=== PATIENT | female | born 1965 | race Caucasian/White ===

== ENCOUNTER 2020-11-08 12:23 | Outpatient (CLI) | payer MEDICARE, OTHER, SELFPAY ==
--- NOTE | ~2020-11-08 | XR_ITS ---
XR toe 5th LT min 2V DATE: 11/08/2020 12:48 INDICATION: Stubbed fifth toe. Pain. TECHNIQUE: 4 views COMPARISON: None FINDINGS: No fracture or dislocation, periosteal reaction or bone destruction. IMPRESSION: Negative Reviewed, dictated and finalized at location A. SALES CONSULTANT IMPRESSION: Negative
--- NOTE | ~2020-11-08 | XR_ITS ---
XR ankle LT min 3V DATE: 11/08/2020 12:48 INDICATION: Fall. Lateral ankle pain. TECHNIQUE: 4 views COMPARISON: None FINDINGS: No fracture or dislocation of the ankle mortise or disruption of the ankle mortise. Plantar calcaneal enthesopathy. IMPRESSION: No fracture or dislocation Reviewed, dictated and finalized at location A. L MANAGER IMPRESSION: No fracture or dislocation
== END 2020-11-08 12:24 | disposition home or self-care (01) ==
LOC: ANHIMG 12:33
PROVIDERS: PCP Internal Medicine; Visit Provider Internal Medicine
DX: M79.672 Pain in left foot (principal); M77.32 Calcaneal spur, left foot
CPT/HCPCS: 73610; 73660

== ENCOUNTER 2020-12-06 08:10 | Outpatient (CLI) | payer MEDICARE, OTHER, SELFPAY ==
--- NOTE | ~2020-12-06 | MM_ITS ---
EXAMINATION: MM screening tammy BI w deepak HISTORY: Screening mammogram TECHNIQUE: Craniocaudal and mediolateral oblique 3-D tomosynthesis images were obtained and synthetic 2-D images were generated. CAD analysis was submitted and interpreted. COMPARISON: No prior mammogram is available for comparison at this institution. BREAST PARENCHYMAL COMPOSITION: The breasts are almost entirely fatty. FINDINGS: RIGHT BREAST: A mass is present in the middle third of the outer breast 5.5 cm from the nipple. No bassett spicious calcification or architectural distortion are identified. LEFT BREAST: There is no evidence of suspicious mass, calcification, or architectural distortion to s uggest malignancy. IMPRESSION: 1. Right breast mass. 2. Additional mammographic views and possible breast ultrasound are recommended. BI-RADS Category 0: Incomplete: Needs additional imaging evaluation. Reviewed, dictated and finalized at location A. TORCH SOLDERER IMPRESSION: 1. Right breast mass. 2. Additional mammographic views and possible breast ultrasound are recommended . BI-RADS Category 0: Incomplete: Needs additional imaging evaluation.
== END 2020-12-06 08:11 | disposition home or self-care (01) ==
LOC: ANHIMG 08:14
PROVIDERS: PCP Internal Medicine; Visit Provider Internal Medicine
DX: Z12.31 Encounter for screening mammogram for malignant neoplasm of breast (principal); R92.8 Other abnormal and inconclusive findings on diagnostic imaging of breast
CPT/HCPCS: 77063; 77067

== ENCOUNTER 2021-01-01 11:38 | Outpatient (CLI) | payer MEDICARE, OTHER, SELFPAY ==
--- NOTE | ~2021-01-01 | MMUS_ITS ---
EXAMINATION: MM diagnostic mammo unilat RT, US breast RT limited HISTORY: Right breast mass on screening mammogram TECHNIQUE: Additional 3-D tomosynthesis images of the right breast were performed and synthetic 2-D i mages were generated. CAD analysis was submitted and interpreted. High resolution limited right breas t ultrasound was performed. COMPARISON: 12/06/2020 FINDINGS: MAMMOGRAPHIC FINDINGS: There is a 6 mm oval, circumscribed, equal density mass in the middle third of the upper outer quadra nt of the breast at the 10:00 location 5 cm from the nipple. No suspicious architectural distortion o r calcification are identified. ULTRASOUND: There is a 5 mm x 2 mm cyst at the 10:00 location 4 cm from the nipple corresponding to the mammograp hic finding in question. No suspicious cystic or solid mass is identified. IMPRESSION: 1. No mammographic or sonographic evidence of malignancy. 2. Recommend routine screening mammography in one year. BI-RADS Category 2: Benign finding(s). Reviewed, dictated and finalized at location A. TEXTURING MACHINE OPERATOR IMPRESSION: 1. No mammographic or sonographic evidence of malignancy. 2. Recommend routine screening mammography in one year. BI-RADS Category 2: Benign finding(s).
== END 2021-01-01 11:39 | disposition home or self-care (01) ==
LOC: ANHIMG 11:39
PROVIDERS: PCP Internal Medicine; Visit Provider Internal Medicine
DX: R92.8 Other abnormal and inconclusive findings on diagnostic imaging of breast (principal)
CPT/HCPCS: 76642; 77065

== ENCOUNTER 2025-05-04 22:01 | Emergency (ER) | payer MEDICARE, OTHER, SELFPAY ==
[2025-05-04 22:07] VITALS: BP 168/87; PULSE 60; RESP 18; TEMP 36.8; O2SAT 98
--- OUTSIDE RECORDS SUMMARY | 2025-05-04 22:21 | XMS_ITS | Clinical Summary ---
Author Organization [facility] Address [address], [address] [address] Phone Care Team Providers Care Fisher Line Name Role Phone Danish Borja MD Primary Care Provider [phone] Aileen Arellano MD Unavailable Allergies No known active allergies Medications ARIPiprazole (ABILIFY) 5 MG Tablet Take 5 mg by mouth daily. 3 Active aspirin EC 81 MG Tablet Delayed Response Take 81 mg by mouth. 3 Active atorvastatin (LIPITOR) 40 MG Tablet 3 Active buPROPion SR (WELLBUTRIN SR) 150 MG TABLET SR 12 HR Take 150 mg by mouth 2 times daily. 3 Active cyclobenzaprin e (FLEXERIL) 5 MG Tablet TAKE 1 TABLET BY MOUTH THREE TIMES DAILY NEEDED 3 Active DULoxetine (CYMBALTA) [address] Particles TAKE 2 CAPSULE BY MOUTH DAILY 3 Active ferrous sulfate 325 (65 Fe) MG Tablet Take 325 mg by mouth. Active Jardiance 10 MG Tablet 3 Active gabapentin (NEURONTIN) 300 MG Capsule Take 600 mg by mouth. 7 Active insulin glargine (LANTUS) 100 UNIT/ML Solution by Subcutaneous route. 3 Active lamoTRIgine (LaMICtal) 25 MG Tablet 3 Active Donepezil HCl 23 MG Tablet 3 Active metFORMIN (GLUCOPHAGE) 1000 MG Tablet Take 1,000 mg by mouth 2 times daily. 3 Active oxybutynin (DITROPAN) 5 MG Tablet Take 5 mg by mouth 2 times daily. 3 Active Glucose Blood (OneTouch Ultra) Strip CHECK BLOOD SUGAR THREE TIMES DAILY 2 Active OneTouch Ultra Strip CHECK BLOOD SUGAR THREE TIMES DAILY 3 Active omeprazole (PriLOSEC) 40 MG CAPSULE DELAYED RELEASE Take 40 mg by mouth. 8 Active loperamide (IMODIUM) 2 MG Capsule Take 2 mg by mouth if needed. 8 Active hydrocortisone 2.5 % Cream 3 Active fluticasone (FLONASE) 50 MCG/ACT Suspension 2 Sprays by Nasal route if needed. 1 Active Cyanocobalamin (VITMAIN B-12) 250 MCG Tablet Take 250 mcg by mouth. Active Cholecalcifero l 2000 UNIT Capsule Take by mouth. Activ e Ascorbic Acid 250 MG Chewable Tablet Take 1,000 mg by mouth. Active terbinafine (LamISIL) 250 MG Tablet TAKE 2 TABLETS BY MOUTH DAILY FOR THE FIRST WEEK OF EVERY MONTH 3 Active metoprolol Succinate (TOPROL-XL) 25 MG TABLET SR 24 HR 4 Active lisinopril (PRINIVIL, ZESTRIL) 20 MG Tablet 4 Active hydrOXYzine (ATARAX) 25 MG Tablet TAKE 1 TABLET BY MOUTH DAILY NEEDED 4 Active MAGNESIUM PO Take 500 mg by mouth. Every other day Active psyllium (Metamucil 3 in 1 Daily Fiber) 400 MG Capsule Take by mouth. Activ e Psyllium 33 % Powder Take 1 Packet by mouth. 025 Discontin ued(Med List Clean Up) Potassium Chloride ER (KLORCON) 20 MEQ Tablet Controlled Release Take 20 mEq by mouth every other day. 4 025 Discontin ued(Med List Clean Up) Active Problems Problem Noted Date Diagnosed Date HTN (hypertension) 08/17/2023 HLD (hyperlipidemia) 08/17/2023 Dementia 08/17/2023 Diabetes 08/17/2023 CVA (cerebral vascular accident) 08/17/2023 Diabetic neuropathy 11/07/2021 12/15/2023 Overview (12/15/2023): Last Assessment & Plan: Checking hemoglobin A1c. No change in medication with Lamictal recently being increased probably more from mood but may also help neuropathy. Consider a trial of reducing gabapentin given she is on multiple neuro active medications. I do not see any adverse effects however from any of them today Last Assessment & Plan: Checking hemoglobin A1c. No change in medication with Lamictal recently being increased probably more from mood but may also help neuropathy. Consider a trial of reducing gabapentin given she is on multiple neuro active medications. I do not see any adverse effects however from any of them today Personality disorder 05/28/2017 12/15/2023 Encounters Date Type Department Care Team Description 04/12/2025 11:00 AM CDT Office Visit [facility] [address] [phone] Mell Pichardo, LEAD LAYING AND GLUING MACHINE OPERATOR, PRIVATE INVESTIGATOR SURVEILLANCE Iron deficiency (Primary Dx); Thrombocytosis; Leukocytosis, unspecified type 04/12/2025 Travel 04/06/2025 11:20 AM CDT Lab [facility] [address] [address] Lab, [facility] Iron deficiency; Thrombocytosis; Leukocytosis, unspecified type 04/06/2025 Travel from Last 3 Months Immunizations Immunization Administration Dates Next Due Covid-19, Mrna, Lnp-s, Pf, 3 0 Mcg/0.3 Ml Dose (Pfizer) 03/26/2021,03/10/2021,03/05/2021 Influenza Vaccine, Quadrivalent, PF 10/01,10/06/2022,11/05/2021,2019,10/05/2019,09/27/2018 Influenza Vaccine,unspecifie d Formulation 08/31/2017,12/05/2013 MMR Vaccine 03/10/2012 Pneumococcal Vaccine Adult - 23 Valent 04/17/2022 TDAP Vaccine 09/27/2018,02/17/2017,02/10/2012 Td Vaccine (preservative free) 11/30/2007 Zoster Vaccine Recombinant 05/14/2019,05/05/2018 Family History Relation Name Status Comments Brother Father Mother Son Alive Social History Tobacco Use Types Packs/Day Years Used Date Smoking Tobacco: Former Cigarettes Q uit: 2020 Smokeless Tobacco: Never Tobacco Cessation:Counseling Given: Not Answered Alcohol Use Standard Drinks/Week Comments Yes 0 (1 standard drink = 0.6 oz pur e alcohol) occassionally Comments Unknown Sex and Gender Information Value Date Recorded Sex Assigned at Female 07/21/2023 1:31 PM CDT Legal Sex Female 1:29 PM CDT Gender Identity Female 07/21/2023 1:31 PM CDT Sexual Orientation Straight 02/08/2024 11 :24 AM CDT Last Filed Vital Signs Vital Sign Reading Time Taken Comments Blood Pressure 108/64 04/12/2025 10:39 AM CDT Pulse 51 04/12/2025 10:39 AM CDT Temperature 36.6 C (97.8 F) 04/12/2025 10:39 AM CDT Respiratory Rate 18 04/12/2025 10:39 AM CDT Oxygen Saturation 98% 04/12/2025 10:39 AM CDT Inhaled Oxygen Concentration - - Weight 82.7 kg (182 lb 4.8 oz) 04/12/2025 10:39 AM CDT Height 175.3 cm (5' 9) 04/12/2025 10:39 AM CDT Body Mass Index 26.92 04/12/2025 10:39 AM CDT Plan of Treatment Upcoming Encounters Date Type Department Care Team (Late st Contact Info) Description 08/09/2025 12:00 PM CDT Lab [facility] [address] [phone] Lab, Cc [facility] 08/16/2025 11:00 AM CDT Office Visit [facility] [address] [phone] Aileen Arellano MD [address] [place] [address] Health Maintenance Due Date Last Done Comments Diabetes: Eye Exam 1966 Diabetes: Foot Exam 1966 Hepatitis C Virus (HCV) Screening 1966 Hepatitis B Immunization (1 of 3 - 19+ 3-dose series) 1985 Pap Smear 1987 Cervical Cancer Screening (CCS) 1996 HPV/Cotest 1996 Cologuard 2016 Immunochemical Fecal Occult Blood 2016 Pneumococcal Immunization (50+ years) (2 of 2 - PCV) 04/17/2023 04/17/2022 Diabetes: Nephropathy Screening 05/03/2025 05/03/2024, 08/17/2023 Diabetes: Hemoglobin A1c 09/08/2025 025, 07/12/2024, 04/07/2024, Additional history exists Mammogram 01/04/2026 01/04/2025, 1202/2023, 11/02/2023, Additional history exists Colonoscopy 09/06/2028 09/06/2018 Colorectal Cancer Screening 09/06/2028 Td Immunization Every 10 Years (Adults With 1 Tdap) 09/27/2028 09/27/2018, 02/17/2017, 02/10/2012, Additional history exists Respiratory Syncytial Virus (RSV) Immunization (Adult) (1 - 1-dose 75+ series) 2041 09/06/2018 DTaP/Tdap/Td Immunization Discontinued 2017, 02/17/2017, 02/10/2012, Additional history exists Zoster Immunization Completed 05/14/2019, 8 Pneumococcal Immunization Combined Discontinued 04/17/2022 Influenza Immunization Completed , 10/26/2023, 10/06/2022, Additional history exists SARS-COV-2 Immunization Completed 11/18/20, 09/16/2022, 04/01/2022, Additional history exists Human Papillomavirus (HPV) Immunization Aged Out No longer eligible based on patient's age to complete this topic Meningococcal Immunization (ACWY) Aged Out No longer eligible based on patient's age to complete this topic Rotavirus Immunization Aged Out No lo nger eligible based on patient's age to complete this topic Procedures Procedure Name Priority Date/Time Associated Diagnosis Comments CBC WITH AUTO DIFF OH Routine 04/06/2025 11:17 AM CDT VITAMIN B12 Routine 04/06/2025 11:17 AM CDT Iron deficiency Thrombocytosis Leukocytosis, unspecified type IRON W/ IRON BINDING CAPACITY OH Routine 04/06/2025 11:17 AM CDT Iron deficiency Thrombocytosis Leukocytosis, unspecified type FERRITIN Routine 04/06/2025 11:17 AM CDT Iron deficiency Thrombocytosis Leukocytosis, unspecified type FOLIC ACID (FOLATE) Routine 04/06/2025 1 1:17 AM CDT Iron deficiency Thrombocytosis Leukocytosis, unspecified type CMP (COMPREHENSIVE METABOLIC PANEL) Routine 05/03/2024 10:43 AM CDT Iron deficiency Thrombocytosis from Last 3 Months or Most Recently Relevant to Health Maintenance Results * IRON W/ IRON BINDING CAPACITY OH (04/06/2025 11:17 AM CDT) IRON 64 50 - 212 ug/dL CANCER TRAVELIFT OPERATOR [facility] UIBC 214 155 - 355 ug/dL CANCER TRAVELIFT OPERATOR [facility] TIBC 278 261 - 478 ug/dl CANCER TRAVELIFT OPERATOR [facility] % Saturation 23 20 - 50 % CANCER TRAVELIFT OPERATOR [facility] 04/06/2025 11:1 7 AM CDT Narrative CANCER TRAVELIFT OPERATOR [facility] - 04/06/2025 12:55 PM CDT Release to patient->Immediate us Veda Powell APRN, PRIVATE INVESTIGATOR SURVEILLANCE LAB SEND OUTS Final Result CANCER TRAVELIFT OPERATOR [facility] [place] [address], * (ABNORMAL) CBC WITH AUTO DIFF [place] (04/06/2025 11:17 AM CDT) WBC 8.9 4.0 - 10.0 10*3/uL CANCER TRAVELIFT OPERATOR [facility] HGB 12.2 11.2 - 15.7 g/dL CANCER TRAVELIFT OPERATOR [facility] HCT 38.1 34.1 - 44.9 % CANCER TRAVELIFT OPERATOR [facility] PLT 353 163 - 369 10*3/uL [facility]CER TRAVELIFT OPERATOR [facility] MPV 8.8(L) 9.4 - 12.4 fL CANCER TRAVELIFT OPERATOR [facility] RBC 3.93 3.93 - 5.22 10*6/uL CANCER TRAVELIFT OPERATOR [facility] MCV 97(H) 79 - 95 fL CANCER TRAVELIFT OPERATOR [facility] MCH 31.0 25.6 - 32.2 pg [facility]CER TRAVELIFT OPERATOR [facility] MCHC 32.0(L) 32.2 - 36.5 g/dL CANCER TRAVELIFT OPERATOR [facility] RDW 12.3 11.6 - 14.4 % [facility]CER TRAVELIFT OPERATOR [facility] Neutrophils % 64.8 36.0 - 66.0 % CANCER TRAVELIFT OPERATOR [facility] Lymphocytes % 28.0 19.0 - 40.0 % [facility] TRAVELIFT OPERATOR [facility] Monocytes % 4.4 4.1 - 12.1 % [facility]CER TRAVELIFT OPERATOR [facility] Eosinophils % 1.5 0.0 - 3.5 % [facility]ER TRAVELIFT OPERATOR [facility] Basophils % 0.7 0.0 - 1.0 % [facility] TRAVELIFT OPERATOR [facility] Absolute Neutrophils 5.8 1.4 - 6.6 10*3/uL [facility] TRAVELIFT OPERATOR [facility] Absolute Lymphocytes 2.5 0.8 - 4.0 10*3/uL [facility] TRAVELIFT OPERATOR [facility] Absolute Monocytes 0.4 0.2 - 1.2 10*3/uL [facility] TRAVELIFT OPERATOR [facility] Absolute Eosinophils 0.1 0.0 - 0.4 10*3/uL [facility] TRAVELIFT OPERATOR [facility] Absolute Basophils 0.1 0.0 - 0.1 10*3/uL [facility] 04/06/2025 11:1 7 AM CDT us Veda Powell LEAD LAYING AND GLUING MACHINE OPERATOR, PRIVATE INVESTIGATOR SURVEILLANCE LAB SEND OUTS Final Result CANCER TRAVELIFT OPERATOR [facility] [address] [place] [address], * VITAMIN B12 (04/06/2025 11:17 AM CDT) Vitamin B12 619 180 - 914 pg/mL CANCER TRAVELIFT OPERATOR [facility] Blood 04/06/2025 11:1 7 AM CDT Narrative CANCER TRAVELIFT OPERATOR [facility] - 04/07/2025 2:19 PM CDT Release to patient->Immediate Veda Powell APRN, PRIVATE INVESTIGATOR SURVEILLANCE CHEMISTRY ORDERABLES Final Result Performing Organization Address City/[facility]/ZIP Co de Phone Number CANCER TRAVELIFT OPERATOR [facility] [address] [place] [address], * FOLIC ACID (FOLATE) (04/06/2025 11:17 AM CDT) Folate 11.87 >=5.90 ng/mL [facility]CER TRAVELIFT OPERATOR [facility] Blood 04/06/2025 11:1 7 AM CDT [facility] - 04/07/2025 2:19 PM CDT Release to patient->Immediate IS THE PATIENT REQUIRED TO BE FASTING FOR 12 HOURS?->No Veda Powell APRN, PRIVATE INVESTIGATOR SURVEILLANCE CHEMISTRY ORDERABLES Final Result Performing Organization Address City/[facility]/ZIP Co de Phone Number [facility] [address] [place] [address], [place] [phone] * FERRITIN (04/06/2025 11:17 AM CDT) Ferritin 69 11 - 307 ng/mL [facility] TRAVELIFT OPERATOR [facility] Blood 04/06/2025 11:1 7 AM CDT Narrative [facility] - 04/07/2025 2:19 PM CDT Release to patient->Immediate Veda Powell LEAD LAYING AND GLUING MACHINE OPERATOR, PRIVATE INVESTIGATOR SURVEILLANCE CHEMISTRY ORDERABLES Final Result [facility] TRAVELIFT OPERATOR [facility] [place] [address], * (ABNORMAL) CMP (COMPREHENSIVE METABOLIC PANEL) (05/03/2024 10:43 AM CDT) Glucose 186(H) 70 - 105 mg/dL [facility] Blood Urea Nitrogen 12 7 - 25 mg/dL [facility] Creatinine 1.1 0.6 - 1.2 mg/dL [facility] Sodium 135(L) 136 - 145 mEq/L [facility] Potassium 4.7 3.5 - 5.1 mEq/L [facility] Chloride 101 98 - 107 mEq/L [facility] Bicarbonate 28 21 - 31 mEq/L [facility] Total Bilirubin 0.3 0.3 - 1.0 mg/dL [facility] Alk. Phosphatase 79 34 - 104 U/L [facility] Aspartate Aminotransferase 8(L) 13 - 39 U/L [facility] Alanine Aminotransferase 9 7 - 52 U/L [facility] Total Protein 5.6(L) 6.4 - 8.9 g/dL [facility] Albumin 3.7 3.5 - 5.7 g/dL [facility] Calcium 9.8 8.6 - 10.3 mg/dL [facility] Anion Gap 10.7 7.0 - 15.0 mEq/L [facility] Globulin 1.9(L) 2.0 - 3.5 g/dL [facility] EGFR 58(L) >60 ml/min/1. 73m2 [facility] TRAVELIFT OPERATOR [facility] Comment: This eGFR is calculated using 2020 CKD-EPI Creatinine equation without race modifier based on the NKF-ASN task force recommendations Blood 05/03/2024 10:4 3 AM CDT Narrative [facility] TRAVELIFT OPERATOR [facility] - 05/03/2024 11:36 AM CDT Release to patient->Immediate IS THE PATIENT REQUIRED TO BE FASTING FOR 8 HOURS?->No us Mell Pichardo APRN, PRIVATE INVESTIGATOR SURVEILLANCE CHEMISTRY ORDERABLES Final Result [facility] TRAVELIFT OPERATOR [facility] [place] [address], [place] [phone] from Last 3 Months or Most Recently Relevant to Health Maintenance Insurance MEDICARE [employer] MEDICARE SUP Advance Directives Documents on File Type Date Recorded Patient Justice Court Judge Expl anation Power of Medical Case Manager for Health Care 08/17/2023 10:59 AM POA DOC Power of Medical Case Manager for Health Care 07/21/2023 1:36 PM Care Teams Fisher Line Relationship Specialty Start Date End Date Danish Borja MD [address] [place] [id number] PCP - General Family Medicine 07/21/23 Aileen Arellano MD [address] [place] [address] Consulting Physician Oncology 12/13/24
--- OUTSIDE RECORDS SUMMARY | 2025-05-04 22:21 | XMS_ITS | Clinical Summary ---
Author Organization [address] Address [address] [place] [id number] Care Team Providers Care Wire Bound Box Machine Helper Name Role Phone Danish Borja MD Primary Care Provider [phone] Allergies No known active allergies Medications ketorolac (TORADOL) 10 mg tablet 7 Active loperamide (IMODIUM) 2 mg capsule Take 1 capsule (2 mg total) by mouth 4 (four) times a day as needed 8 Active fluticasone propionate (FLONASE) 50 mcg/actuation nasal sprayIndications :Dysfunction of both eustachian tubes Administer 2 sprays into each nostril daily 16 g 5 1 Active ARIPiprazole (ABILIFY) 5 mg tablet Take 1 tablet (5 mg total) by mouth daily 1 Active blood-glucose meter (Accu-Chek Nery Plus Meter) miscIndications: Type 2 diabetes mellitus without complication, without long-term current use of insulin (HCC) Check blood sugar 3 times daily 1 each 2 Active ipratropium-albu teroL (DUO-NEB) 0.5-2.5 mg/3 mL nebulizer solutionIndicati ons:Centrilobula r emphysema (HCC) Take 3 mL by nebulization every 6 (six) hours 180 mL 11 2 Active metoprolol XL (TOPROL-XL) 100 mg 24 hr tabletIndication s:Benign essential HTN Take 1 tablet (100 mg total) by mouth daily 90 tablet 3 2 Active blood glucose diagnostic (glucose blood) stripIndications :Type 2 diabetes mellitus without complication, without long-term current use of insulin ([facility]) Checks bs tid 100 each 11 2 Active buPROPion SR (WELLBUTRIN SR) 150 mg 12 hr tablet TAKE 1 TABLET(150 MG) BY MOUTH TWICE DAILY 60 tablet 3 2 Active lamoTRIgine (LaMICtal) 100 mg tablet Take 1 tablet (100 mg total) by mouth daily [address] (CYMBALTA) 60 mg capsule daily 2 Active metFORMIN (GLUCOPHAGE) 1,000 mg tabletIndication s:Type 2 diabetes mellitus without complication, without long-term current use of insulin ([facility]) Take 1 tablet (1,000 mg total) by mouth 2 (two) times a day with meals 60 tablet 5 2 Active glimepiride (AMARYL) 1 mg tabletIndication s:Type 2 diabetes mellitus without complication, without long-term current use of insulin ([facility]) Take 1 tablet (1 mg total) by mouth daily before breakfast 90 tablet 2 Active furosemide (LASIX) 40 mg tabletIndication s:Edema of both legs,Essential hypertension Take 1 tablet (40 mg total) by mouth daily 30 tablet 3 2 Active cloNIDine (CATAPRES) 0.3 mg tablet Take 1 tablet (0.3 mg total) by mouth daily 90 tablet 1 2 Active potassium chloride ER 20 mEq CR tabletIndication s:Edema of both legs Take 1 tablet (20 mEq total) by mouth daily 90 tablet 1 2 Active Additional Information Patient not taking.Reported on 03/07/2025 oxybutynin (DITROPAN) 5 mg tabletIndication s:Mixed stress and urge urinary incontinence Take 1 tablet (5 mg total) by mouth 2 (two) times a day 180 tablet 2 Active lisinopriL (PRINIVIL,ZESTRI L) 20 mg tablet Take 1 tablet (20 mg total) by mouth daily 90 tablet 1 2 Active donepeziL (ARICEPT) 10 mg tablet Take 1 tablet (10 mg total) by mouth daily 90 tablet 1 2 Active gabapentin (NEURONTIN) 300 mg capsuleIndicatio ns:Polyneuropath y Take 2 capsules (600 mg total) by mouth 3 (three) times a day 180 capsule 2 3 Active aspirin 81 mg enteric coated tablet Take 1 tablet (81 mg total) by mouth daily 3 Active cholecalciferol (VITAMIN D-3) 2000 unit capsule Take by mouth daily Active cyanocobalamin (Vitamin B-12) 250 mcg tablet Take 1 tablet (250 mcg total) by mouth daily Active cyclobenzaprine (FLEXERIL) 5 mg tablet Take 1 tablet (5 mg total) by mouth 3 (three) times a day as needed 3 Active Jardiance 10 mg tablet Take 1 tablet (10 mg total) by mouth daily 3 Active ferrous sulfate 325 mg (65 mg of elemental iron) tablet Take 1 tablet (325 mg total) by mouth daily Active insulin glargine 100 unit/mL vial for injection Inject under the skin 3 Active psyllium (METAMUCIL) 3.4 gram packet Take 1 packet by mouth 3 (three) times a day Active Active Problems Problem Noted Date Diagnosed Date Thyroid nodule 03/06/2024 Assessment & Plan (03/06/2024 6:53 PM CDT): Incidental 1.8 cm right complex thyroid nodule, low suspicious Defer FNA biopsy No compressive symptoms Check TSH Follow-up in 1 year for a repeat thyroid ultrasound, to follow-up on the nodule Cognitive impairment 10/06/2022 Assessment & Plan (10/06/2022 10:37 AM HEAD UP OPERATOR HELPER): Exact diagnosis not in chart but certainly consistent with early Alzheimer's with mild TD affects consider Lewy body component. Stay on Aricept Obstructive chronic bronchitis without exacerbat ion 02/03/2022 Assessment & Plan (10/06/2022 10:35 AM HEAD UP OPERATOR HELPER): Doing well no change in management Diabetic neuropathy 11/07/2021 Assessment & Plan (10/06/2022 10:37 AM HEAD UP OPERATOR HELPER): Checking hemoglobin A1c. No change in medication with Lamictal recently being increased probably more from mood but may also help neuropathy. Consider a trial of reducing gabapentin given she is on multiple neuro active medications. 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 08/05/2017 Polyneuropathy 07/01/2017 Pure hypercholesterolemia 07/01/2017 Assessment & Plan (10/06/2022 9:47 AM HEAD UP OPERATOR HELPER): Last lipids 05/21 are at goals except mild increase in TG - diet improvement, no change in Rx Major depressive disorder, s jessica episode, severe without psychotic features 05/28/2017 Assessment & Plan (10/06/2022 10:36 AM HEAD UP OPERATOR HELPER): No longer having psychotic features discussed with concern for early tardive dyskinesia, has been doing well since started CBD oil, it is possible does not need aripiprazole as much as initially felt by Psychiatry. Given long half life simply skip 1 day a week to go to 35 in 30 mg of aripiprazole re-evaluate Personality disorder 05/28/2017 Encounters Date Type Department Care Team Description 03/07/2025 11:15 AM CDT Office Visit [facility] [address] [id number] Joaquina Lujan MD Thyroid nodule (Primary Dx) from Last 3 Months Immunizations Immunization Administration Dates Next Due Influenza, Quadrivalent, Spl it, Intramuscular 11/02/2019 Influenza, Quadrivalent, Spl it, Preservative Free, Intramuscular 10/06/2022,11/19/2021,11/05/2021,08/27,10/05/2019,09/27/2018 Influenza, Trivalent, Preser vative Free, Intramuscular 08/31/2017 Influenza, Unspecified 08/30/2021,08/22/2020 MMR 03/10/2012 Pfizer SARS-CoV-2 Monovalent Vaccination (12+ Yrs) PURPLE 03/26/2021,03/05/2021 Pneumococcal Polysaccharide PPV23 04/17/2022 Tdap 09/27/2018,02/17/2017,02/10/2012 ZOSTER Recombinant 05/14/2019,05/05/2018 Surgical History Surgery Date Site/Laterality Comments MULTIPLE TOOTH EXTRACTIONS TUBAL LIGATION Family History Medical History Relation Name Comments No Known Problems Brother 1 ami No Known Problems Brother 2 betsy Diabetes Brother 3 lorenzo Hypertension Father breathing problems, not COPD Father No Known Problems Maternal Grandfather No Known Problems Maternal Grandmother Alzheimer's disease Mother Breast cancer Mother Colon cancer Mother Hypertension Mother brain tumor Mother No Known Problems Paternal Grandfather No Known Problems Paternal Grandmother No Known Problems Son Relation Name Status Comments Brother 1 ami Brother 2 betsy Alive Brother 3 lorenzo Father Maternal Grandfather Maternal Grandmother Mother Paternal Grandfather Paternal Grandmother Son Alive Social History Tobacco Use Types Packs/Day Years Used Date Smoking Tobacco: Former Cigarettes 1 41 0 07/18/1981 - 07/2022 Smokeless Tobacco: Never Tobacco Cessation:Counseling Given: Not Answered Comments:pt interested in Nicotine patches or gum to quit Humiliation, Afraid, Rape, and Kick questionnair e Answer Date Recorded Within the last year, have y ou been afraid of your partner or ex-partner? No 04/17/2022 Within the last year, have y ou been humiliated or emotionally abused in other ways by your partner or ex-partner? No Within the last year, have y ou been kicked, hit, slapped, or otherwise physically hurt by your partner or ex-partner? No 04/17/2022 Within the last year, have y ou been raped or forced to have any kind of sexual activity by your partner or ex-partner? No 04/17/2022 Social Connection and Isolation Panel [NHANES] A nswer Date Recorded In a typical week, how many times do you talk on the phone with family, friends, or neighbors? Never 04/17/2022 How often do you get together with friends or re latives? Never 04/17/2022 How often do you attend orthodoxy or buddhist serv ices? Never 04/17/2022 Do you belong to any clubs o r organizations such as orthodoxy groups, unions, fraternal or athletic groups, or school groups? No 04/17/2022 How often do you attend meet ings of the clubs or organizations you belong to? Never 04/17/2022 Are you , , di vorced, , never , or living with a partner? 04/17/2022 AUDIT-C Answer Date Recorded Frequency of Alcohol Consumption Not on file 10/06/2022 Q2: How many drinks containi ng alcohol do you have on a typical day when you are drinking? Patient does not drink Frequency of Binge Drinking Not on file 05/2022 Overall Financial Resource Strain (CARDIA) Answe r Date Recorded How hard is it for you to pa y for the very basics like food, housing, medical care, and heating? Not hard at all 04/17/2022 PHQ-2 Answer Date Recorded PHQ-2 Total Score (If total score is 3 or more points, staff should administer the PHQ-9) 0 03/04/2024 [facility] - Occupational Stress Questionnaire Answer Date Recorded Do you feel stress - tense, restless, nervous, or anxious, or unable to sleep at night because your mind is troubled all the time - these days? Very much 04/17/2022 Exercise Vital Sign Answer Date Recorde d On average, how many days pe r week do you engage in moderate to strenuous exercise (like a brisk walk)? 4 days 04/17/2022 On average, how many minutes do you engage in exercise at this level? 70 min 04/17/2022 Hunger Vital Sign Answer Date Recorded Within the past 12 months, y ou worried that your food would run out before you got the money to buy more. Never true 04/17/20 22 Within the past 12 months, t he food you bought just didn't last and you didn't have money to get more. Never true 04/17/2022 PRAPARE - Transportation Answer Date Re corded In the past 12 months, has l ack of transportation kept you from medical appointments or from getting medications? No 03/30 In the past 12 months, has l ack of transportation kept you from meetings, work, or from getting things needed for daily living? No 04/17/2022 Education Answer Date Recorded What is the highest level of school you have completed or the highest degree you have received? Some college, no degree 04/17/2022 Comments No Sex and Gender Information Value Date Recorded Sex Assigned at Not on file Legal Sex Female 9:10 AM HEAD UP OPERATOR HELPER Gender Identity Female 03/26/2022 9:38 AM CDT Sexual Orientation Straight 03/26/2022 9: 38 AM CDT Obstetrics History Para Term AB IAB SAB Ectopic Multiple Livin g Live Births 1 1 1 Date Outcome GA Total Labor Labor/2nd/3rd Weight Sex Type Anes PTL Samantha A1 A5 Name Clin Term Comments Last Filed Vital Signs Vital Sign Reading Time Taken Comments Blood Pressure 120/80 03/07/2025 11:10 AM CDT Pulse 66 03/04/2024 10:58 AM CDT Temperature 36.8 C (98.2 F) 11/04/2022 9:59 AM HEAD UP OPERATOR HELPER Respiratory Rate 15 03/07/2025 11:10 AM CDT Oxygen Saturation 98% 11/04/2022 9:59 AM HEAD UP OPERATOR HELPER Inhaled Oxygen Concentration - - Weight 83.5 kg (184 lb) 03/07/2025 11:10 AM CDT Height 175.3 cm (5' 9) 03/07/2025 11:10 AM CDT Body Mass Index 27.17 03/07/2025 11:10 AM CDT Plan of Treatment Health Maintenance Due Date Last Done Comments Hepatitis C Screening 1965 Foot Exam 1965 Hepatitis B Screening 1984 Lung Cancer Screening 2016 Hemoglobin A1C 04/05/2023 10/06/2022, 05/01, 07/29/2021 Pneumococcal vaccine <65 (2 of 2 - PCV) 04/17/2023 04/17/2022 Cervical Cancer Screening 06/20/2023 06/20/2022 Dilated Eye Exam 08/08/2023 08/08/2022 Albumin Creatinine Ratio, Urine 10/06/2023 , 07/29/2021 eGFR 10/06/2023 10/06/2022, 05/28/2022 Regular Well Visit/Exam 18-64 07/01/2024, 06/20/2022, 04/17/2022 Covid-19 Vaccine (2023-12 5 season) 2024 07/25/2022, 04/01/2022, 11/19/2021, Additional history exists Depression Screening 03/04/2025 03/04/2024, 04/17/2022, 04/17/2022, Additional history exists Lipid Panel 05/18/2025 05/18/2024, 05/01, 07/29/2021 Influenza Vaccine (Season Ended) 2025 10/26/2023, 10/06/2022, 09/16/2022, Additional history exists Breast Cancer Screening-Mammogram 01/04/2026 01/04/2025, 11/02/2023, 10/22/2022 Colon Cancer Screening-Colonoscopy 09/06/20282017 DTaP/Tdap/Td Vaccine (4 - Td or Tdap) 09/27/2028 09/27/2018, 02/17/2017, 02/10/2012, Additional history exists Zoster Vaccine Completed 05/14/2019, 05/05/2018 Procedures Procedure Name Priority Date/Time Associated Diagnosis Comments US THYROID Schedule Routine, Read Routine (OP Routine) 03/07/2025 12:09 PM CDT Thyroid nodule SCREENING MAMMOGRAM BILATERAL W TRAVIS Schedule Routine, Read Routine (OP Routine) 01/04/2025 10:14 AM HEAD UP OPERATOR HELPER Screening mammogram, encounter for EGFR Routine 10/06/2022 11:04 AM HEAD UP OPERATOR HELPER Diabetic polyneuropathy associated with type 2 diabetes mellitus (HCC) Type 2 diabetes mellitus without complication, without long-term current use of insulin (HCC) HEMOGLOBIN A1C Routine 10/06/2022 11:04 AM HEAD UP OPERATOR HELPER Diabetic polyneuropathy associated with type 2 diabetes mellitus (HCC) Type 2 diabetes mellitus without complication, without long-term current use of insulin (HCC) ALBUMIN CREATININE RATIO, URINE Routine 10/06/2022 11:04 AM HEAD UP OPERATOR HELPER Diabetic polyneuropathy associated with type 2 diabetes mellitus (HCC) Type 2 diabetes mellitus without complication, without long-term current use of insulin (HCC) DIABETIC EYE EXAM Routine 08/08/2022 PAP AND HIGH RISK HPV, REFLEX TO GENOTYPING Routine 06/20/2022 10:20 AM CDT Well woman exam LIPID PANEL Routine 05/28/2022 7:14 AM CDT Encounter for well woman exam with routine gynecological exam COLONOSCOPY Routine 09/06/2018 from Last 3 Months or Most Recently Relevant to Health Maintenance Results * US Thyroid - Clinic Performed (03/07/2025 12:09 PM CDT) Anatomical Region Laterality Modality Head and Neck N/A Ultrasound Narrative 03/07/2025 12:09 PM CDT THYROID ULTRASOUND DATE: 03/07/2025 INDICATION: Thyroid nodule PROCEDURE: Using physician performed real time ultrasonography limited to the thyroid gland, longitudinal and transverse images were obtained of both lobes and isthmus. COMPARISON STUDY: 08/2023 FINDINGS: The right thyroid lobe measures approx 3.24 X 1.47 X 1.97 cm. The left thyroid lobe measures approx 4.11 X 1.6 x 1.47 cm. Isthmus measures 0.28 cm With in the right lobe there is complex isoechoic thyroid nodule measuring approximately 1.65 x 0.84 x 0.81 cm, grade 2 vascularity noted, no calcifications noted IMPRESSION: Stable right thyroid nodule us Supraja Giacomo Gooden MD IMG US PROCEDURES F inal Result * Screening Mammogram Bilateral W Travis (01/04/2025 10:14 AM HEAD UP OPERATOR HELPER) Anatomical Region Laterality Modality Breast Bilateral Mammography Impressions 01/04/2025 10:21 AM HEAD UP OPERATOR HELPER BI-RADS ATLAS category (overall): 1 - Negative There is no mammographic evidence of malignancy. A 1 year screening mammogram is recommended. The patient has been or will be contacted. We recommend annual screening mammography for women at average risk of breast cancer beginning at age 40, based on guidelines of the [employer] (ACR Practice Parameter for the Performance of Screening and Diagnostic Mammography) and [employer]. For women with and elevated risk of breast cancer, please refer to the ACR Practice Parameter for specific screening recommendations. The patient will be entered into a reminder system with a target due date of 1 year for her next screening exam. Narrative 01/04/2025 10:21 AM HEAD UP OPERATOR HELPER Screening Mammogram Bilateral W Travis: 01/04/25 The study was acquired using full field digital technology and interpreted from soft copy. 2D digital mammographic views, as well as 3D digital tomosynthesis were performed in the CC and MLO projections. CLINICAL: Screening mammogram, encounter for. No relevant medical history has been documented for this patient. History of breast cancer in Mother. COMPARISONS: 11/02/2023 Screening Mammogram Bilateral W Travis 10/22/2022 Screening Mammogram Bilateral W Travis BREAST TISSUE: The breasts are almost entirely fatty. FINDINGS: There is no new suspicious finding in either breast on mammogram. us Self Screening Mammogram IMG MAMMO PROCEDURES Fi nal Result * eGFR (10/06/2022 11:04 AM HEAD UP OPERATOR HELPER) eGFR 48 mL/min/1. 73 m2 [facility] Comment: Interpretive Data Reference Interval Normal >/= 90 mL/min/1.73m2 Mildly decreased* 60 - 89 mL/min/1.73m2 Mildly to moderately decreased 45 - 59 mL/min/1.73m2 Moderately to severely decreased 30 - 44 mL/min/1.73m2 Severely decreased 15 - 29 mL/min/1.73m2 Kidney Failure < 15 mL/min/1.73m2 *Relative to young adult level Estimated glomerular filtration rate is determined by the 2020 CKD-EPI equation recommended by the National Kidney Foundation (A Unifying Approach to GFR Estimation: Recommendations of the NKF-ASK Task Force on Reassessing the Inclusion of Race in Diagnosing Kidney Disease, JASN 2020). The CKD-EPI equation should not be used for patients with unstable renal function and has not been validated in children and those over 70. Current interpretive data was last reviewed 2021. Blood 10/06/2022 11:0 4 AM HEAD UP OPERATOR HELPER 10/06/2022 12:18 PM HEAD UP OPERATOR HELPER Olvin Murray MD LAB BLOOD ORDERABLES Fin al Result [facility] [address] [facility] Department [place] [address] * (ABNORMAL) Albumin Creatinine Ratio, Urine (10/06/2022 11:04 AM HEAD UP OPERATOR HELPER) Albumin Ur <12.0 mg/L [facility] Comment: Interpretive Data No reference range established. Current interpretive data was last revised 2019. Creatinine Ur 21.0 mg/dL [facility] Comment: Interpretive Data No reference range established. Current interpretive data was last revised 2019. Albumin Creatinine Ratio, Ur <57(H) 1 - 29 mg/g [facility] Urine 10/06/2022 11:0 4 AM HEAD UP OPERATOR HELPER 10/06/2022 12:19 PM HEAD UP OPERATOR HELPER Olvin Murray MD LAB URINE ORDERABLES Fin al Result Performing Organization Address [facility] de Phone Number [address] [place] [address] * (ABNORMAL) Hemoglobin A1c (10/06/2022 11:04 AM HEAD UP OPERATOR HELPER) Hgb A1C 7.2(H) 4.0 - 5.6 % [facility] Estimated Average Glucose 160 mg/dL [facility] Comment: The ADA recommends reporting an estimated Average Glucose (eAG) with all Hemoglobin A1c results using the equation derived from a study of 507 normal and diabetic adults. Minority populations were underrepresented and children were not included. (Diabetes Care 31:9225-8564, 2008). The eAG is not equivalent to a fasting glucose. Blood 10/06/2022 11:0 4 AM HEAD UP OPERATOR HELPER 10/06/2022 12:18 PM HEAD UP OPERATOR HELPER Olvin Murray MD LAB BLOOD ORDERABLES Fin al Result Performing Organization Address [facility] Co de Phone Number [address] [place] [address] * Diabetic Eye Exam (08/08/2022) Zayra Marquez MD HEALTH MAINTENANCE Final Result * Pap and High Risk HPV, reflex to Genotyping (06/20/2022 10:20 AM CDT) Thin prep (Pap test) 06/20/2022 10:20 AM CDT 06/23/2022 10:20 AM CDT Narrative PATHOLOGY [facility] - 06/25/2022 11:10 AM CDT [facility] Department of Pathology [address] [place], [place] [id number] Final Report with Addendum Note to Patients: This report may contain a detailed description of human tissue sent by a health care provider to the laboratory for pathologic evaluation. The content of this report is essential for diagnosis and may provide important critical findings. This information may be unfamiliar to patients to review without a medical professional present. It is advised that the patient review this report in the presence of a health care provider who can answer questions and explain the details. Patient Name: BIANKA DEY Address: [address] [place] [address] Gender: F : 1965 (Age: 57) Service: Location: [facility] : [id number] Hospital #: [id number] Patient Type: [facility] SPECIMEN Taken: 06/20/2022 Received: 06/23/2022 Accessioned:: 06/24/2022 Reported: 06/25/2022 Physician(s): Govind Long M.D. [facility] Diagnosis: Source of Specimen: SCREENING THIN PREP IMAGED PAP w/ HPV Specimen Adequacy: - Satisfactory for evaluation; endocervical/transformation zone component present General Category: - Negative for intraepithelial lesion or malignancy ROSETTA Kelley(ASCP) Report Electronically Reviewed and Signed Out By TIARA KelleyASCP) 06/25/2022 11:10:48Addenda: HPV Test Interpretation NEGATIVE for types 16, 18, 31, 33, 35, 39, 45, 51, 52, 56, 58, 59, 66 and 68. Test performed utilizing Gen-Probe Aptima assay. ROSETTA Kelley(ASCP)Report Electronically Reviewed and Signed Out By ROSETTA Kelley(ASCP) 06/24/2022 14:52:25 Specimen(s) Received: A: SCREENING THIN PREP IMAGED PAP w/ HPV Clinical History: Last Menstrual Period: pm Menstrual History: Post-menopausal Clinical History: WWE The Pap test is a screening test used to aid in the detection of cervical cancer and its precursors. It should not be the sole means by which malignant and premalignant lesions are diagnosed. Both false negative and false positive results may occur. It also has poor sensitivity for the detection of endometrial lesions and should not be used to evaluate suspected endometrial abnormalities. For these reasons it is most important to obtain Pap tests at regular intervals. The performance characteristics of some immunohistochemical stains, fluorescence in-situ hybridization tests and immunophenotyping by flow cytometry cited in this report (if any) were determined by the Surgical Pathology Department at [facility] as part of an ongoing quality lab technician program and in compliance with federally mandated regulations drawn from the Clinical Laboratory Improvement Act of 1988 (CLIA '88). Some of these tests rely on the use of analyte specific reagents and are subject to specific labeling requirements by the US Food and Drug Administration. Such diagnostic tests may only be performed in a facility that is certified by the Department of Health and Human Services as a high complexity laboratory under CLIA '88. The FDA has determined that such clearance or approval is not necessary. This test is used for clinical purposes. It should not be regarded as investigational or for research. Nevertheless, federal rules concerning the medical use of analyte specific reagents require that the following disclaimer be attached to the report: This test was developed and its performance characteristics determined by the Surgical Pathology Department [facility]. It has not been cleared or approved by the U. S. Food and Drug Administration. Govind Long MD LAB CYTOLOGY ORDERABLES Final Result PATHOLOGY [facility] * (ABNORMAL) Lipid panel (05/28/2022 7:14 AM CDT) Cholesterol 144 30 - 199 mg/dL [facility] Comment: Interpretive Data Ages < or = 19 years Acceptable: <170 mg/dL Borderline high: 170-199 mg/dL High: >or= 200 mg/dL Ages > or = 20 years Desirable: <200 mg/dL Borderline high: 200-239 mg/dL High: >or= 240 mg/dL Literature References: 1. Expert Panel on Integrated Guidelines for Cardiovascular Health and Risk Reduction in Children and Adolescents. Pediatrics 2011;128:S213 2. NCEP Expert Panel. Circulation 2004;110:227 Current Interpretive Data was last revised on 2018. Triglycerides 166(H) <=149 mg/dL JOHN Comment: Interpretive Data Ages < or = 9 years Acceptable: <75 mg/dL Borderline high: 75-99 mg/dL High: >or= 100 mg/dL Ages 10 to 20 years Acceptable: <90 mg/dL Borderline high: 90-129 mg/dL High: >or= 130 mg/dL Ages > or = 20 years Desirable: <150 mg/dL Borderline high: 150-199 mg/dL High: 200-499 mg/dL Very high: >or= 499 mg/dL Literature References: 1. Expert Panel on Integrated Guidelines for Cardiovascular Health and Risk Reduction in Children and Adolescents. Pediatrics 2011;128:S213 2. NCEP Expert Panel. Circulation 2003;110:227 Current Interpretive Data was last revised on 2018. HDL 52 >=40 mg/dL JOHN Comment: Interpretive Data Ages < or = 19 years Acceptable: >45 mg/dL Borderline low: 40-45 mg/dL Low: <40 mg/dL Ages > or = 20 years Desirable: >or= 60 mg/dL Low: <40 mg/dL Literature References: 1. Expert Panel on Integrated Guidelines for Cardiovascular Health and Risk Reduction in Children and Adolescents. Pediatrics 2011;128:S213 2. NCEP Expert Panel. Circulation 2004;110:227 Current Interpretive Data was last revised on 2018. LDL, calculated 59 <=129 mg/dL JOHN Comment: Interpretive Data Ages < or = 19 years Acceptable: <110 mg/dL Borderline high: 110-129 mg/dL High: >or= 130 mg/dL Ages > or = 20 years Optimal: <100 mg/dL Near optimal: 100-129 mg/dL Borderline high: 130-159 mg/dL High: >160 mg/dL Literature References: 1. Expert Panel on Integrated Guidelines for Cardiovascular Health and Risk Reduction in Children and Adolescents. Pediatrics 2011;128:S213 2. NCEP Expert Panel. Circulation 2004;110:227 Current Interpretive Data was last revised on 2018. Non-HDL Cholesterol 92 mg/dL JOHN Comment: Interpretive Data Ages < or = 19 years Acceptable: <120 mg/dL Borderline high: 120-144 mg/dL High: >145 mg/dL Ages > or = 20 years When triglycerides are >200 mg/dL, Non-HDL cholesterol is a secondary target of therapy with treatment goals that are 30 mg/dL greater than the LDL cholesterol target. Literature References: 1. Expert Panel on Integrated Guidelines for Cardiovascular Health and Risk Reduction in Children and Adolescents. Pediatrics 2011;128:S213 2. NCEP Expert Panel. Circulation 2004;110:227 Current Interpretive Data was last revised on 2018. Chol/HDL ratio 3 JOHN QUEZADA Blood 05/28/2022 7:14 AM CDT 05/28/2022 7:20 AM CDT Danish Borja MD LAB BLOOD ORDERABLES Final Resu lt JOHN QUEZADA [address] [facility] Department [place] [address] * Colonoscopy (09/06/2018) Anatomical Region Laterality Modality Other Impressions 09/06/2018 Repeat in 5 years Results in care everywhere Historical Provider ENDOSCOPY PROCEDURES Edit ed Result - Final from Last 3 Months or Most Recently Relevant to Health Maintenance Insurance [facility] MEDICARE Advance Directives For more information, please contact: [phone] Documents on File Type Date Recorded Patient Runway Model Expl anation Power of Director Agricultural Services 03/04/2024 11:01 AM Advance Directives and Living Will 11/02/2023 8:05 AM ADVANCE DIRECTIVE 02/12/2022 9:18 PM POWER OF LOADER MAGAZINE GRINDER ADVANCE DIRECTIVE 02/12/2022 9:18 PM POWER OF LOADER MAGAZINE GRINDER- Medical Care Teams Wire Bound Box Machine Helper Relationship Specialty Start Date End Date Danish Borja MD PCP - General Family Medicine 09/22/23
--- OUTSIDE RECORDS SUMMARY | 2025-05-04 22:21 | XMS_ITS | Referral Summary ---
Author Organization [address] Address [address] [place] [id number] Care Team Providers Care Hot Man Name Role Phone Danish Borja MD Primary Care Provider Encounters Date Type Department Care Team Description 03/07/2025 11:15 AM CDT Office Visit [address] [phone] Joaquina Lujan MD Thyroid nodule (Primary Dx) from Last 3 Months Allergies No known active allergies Medications ketorolac [...] complication, without long-term current use of insulin ([facility]) Checks bs tid 100 each 11 2 [...] complication, without long-term current use of insulin ([facility]) Take 1 tablet (1,000 mg total) by mouth 2 (two) times a day with meals 60 tablet 5 2 Active glimepiride (AMARYL) 1 mg tabletIndication s:Type 2 diabetes mellitus without complication, without long-term current use of insulin ([facility]) Take 1 tablet (1 mg total) by [...] 10/06/2022 Assessment & Plan (10/06/2022 10:37 AM MATHEMATICS ACADEMIC CHAIR): Exact diagnosis not in chart but certainly consistent with early Alzheimer's with mild TD affects consider Lewy body component. Stay on Aricept Obstructive chronic bronchitis without exacerbat ion 02/03/2022 Assessment & Plan (10/06/2022 10:35 AM MATHEMATICS ACADEMIC CHAIR): Doing well no change in management Diabetic neuropathy 11/07/2021 Assessment & Plan (10/06/2022 10:37 AM MATHEMATICS ACADEMIC CHAIR): Checking hemoglobin A1c. No change in medication [...] 07/01/2017 Assessment & Plan (10/06/2022 9:47 AM MATHEMATICS ACADEMIC CHAIR): Last lipids 05/21 are at goals except mild increase in TG - diet improvement, no change in Rx Major depressive disorder, s jessica episode, severe without psychotic features 05/28/2017 Assessment & Plan (10/06/2022 10:36 AM MATHEMATICS ACADEMIC CHAIR): No longer having psychotic features discussed with concern for early tardive dyskinesia, has been doing well since started CBD oil, it is possible does not need aripiprazole as much as initially felt by Psychiatry. Given long half life simply skip 1 day a week to go to 35 in 30 mg of aripiprazole re-evaluate Personality disorder 05/28/2017 Immunizations Immunization Administration Dates Next Due Influenza, Quadrivalent, Spl it, Intramuscular 11/02/2019 Influenza, Quadrivalent, Spl it, Preservative Free, Intramuscular 10/06/2022,11/19/2021,11/05/2021,08/27,10/05/2019,09/27/2018 Influenza, Trivalent, Preser vative Free, Intramuscular 08/31/2017 Influenza, Unspecified 08/30/2021,08/22/2020 MMR 03/10/2012 Pfizer SARS-CoV-2 Monovalent Vaccination (12+ Yrs) PURPLE 03/26/2021,03/05/2021 Pneumococcal Polysaccharide PPV23 04/17/2022 Tdap 09/27/2018,02/17/2017,02/10/2012 ZOSTER Recombinant 05/14/2019,05/05/2018 Social History Tobacco Use Types Packs/Day Years [...] Never 04/17/2022 How often do you attend scientology or orthodoxy serv ices? Never 04/17/2022 Do you belong to any clubs o r organizations such as scientology groups, unions, fraternal or athletic groups, or [...] staff should administer the PHQ-9) 0 03/04/2024 [facility] - Occupational Stress Questionnaire Answer Date Recorded [...] on file Legal Sex Female 9:10 AM MATHEMATICS ACADEMIC CHAIR Gender Identity Female 03/26/2022 9:38 AM CDT Sexual Orientation Straight 03/26/2022 9: 38 AM CDT Last Filed Vital Signs Vital Sign Reading Time Taken Comments Blood Pressure 120/80 03/07/2025 11:10 AM CDT Pulse 66 03/04/2024 10:58 AM CDT Temperature 36.8 C (98.2 F) 11/04/2022 9:59 AM MATHEMATICS ACADEMIC CHAIR Respiratory Rate 15 03/07/2025 11:10 AM CDT Oxygen Saturation 98% 11/04/2022 9:59 AM MATHEMATICS ACADEMIC CHAIR Inhaled Oxygen Concentration - - Weight 83.5 kg (184 lb) 03/07/2025 11:10 AM CDT Height 175.3 cm (5' 9) 03/07/2025 11:10 AM CDT Body Mass Index 27.17 03/07/2025 11:10 AM CDT Plan of Treatment Not on file Procedures Procedure Name Priority Date/Time Associated Diagnosis Comments US THYROID Schedule Routine, Read Routine (OP Routine) 03/07/2025 12:09 PM CDT Thyroid nodule SCREENING MAMMOGRAM BILATERAL W TRAVIS Schedule Routine, Read Routine (OP Routine) 01/04/2025 10:14 AM MATHEMATICS ACADEMIC CHAIR Screening mammogram, encounter for EGFR Routine 10/06/2022 11:04 AM MATHEMATICS ACADEMIC CHAIR Diabetic polyneuropathy associated with type 2 diabetes mellitus (HCC) Type 2 diabetes mellitus without complication, without long-term current use of insulin (HCC) HEMOGLOBIN A1C Routine 10/06/2022 11:04 AM MATHEMATICS ACADEMIC CHAIR Diabetic polyneuropathy associated with type 2 diabetes mellitus (HCC) Type 2 diabetes mellitus without complication, without long-term current use of insulin (HCC) ALBUMIN CREATININE RATIO, URINE Routine 10/06/2022 11:04 AM MATHEMATICS ACADEMIC CHAIR Diabetic polyneuropathy associated with type 2 diabetes [...] Mammogram Bilateral W Travis (01/04/2025 10:14 AM MATHEMATICS ACADEMIC CHAIR) Anatomical Region Laterality Modality Breast Bilateral Mammography Impressions 01/04/2025 10:21 AM MATHEMATICS ACADEMIC CHAIR BI-RADS ATLAS category (overall): 1 - Negative There is no mammographic evidence of malignancy. A 1 year screening mammogram is recommended. The patient has been or will be contacted. We recommend annual screening mammography for women at average risk of breast cancer beginning at age 40, based on guidelines of the [employer] (ACR Practice Parameter for the Performance of Screening and Diagnostic Mammography) and [employer]. For women with and elevated risk of breast cancer, please refer to the ACR Practice Parameter for specific screening recommendations. The patient will be entered into a reminder system with a target due date of 1 year for her next screening exam. Narrative 01/04/2025 10:21 AM MATHEMATICS ACADEMIC CHAIR Screening Mammogram Bilateral W Travis: 01/04/25 The [...] nal Result * eGFR (10/06/2022 11:04 AM MATHEMATICS ACADEMIC CHAIR) eGFR 48 mL/min/1. 73 m2 JOHN Comment: Interpretive Data Reference Interval Normal >/= [...] reviewed 2021. Blood 10/06/2022 11:0 4 AM MATHEMATICS ACADEMIC CHAIR 10/06/2022 12:18 PM MATHEMATICS ACADEMIC CHAIR Olvin Murray MD LAB BLOOD ORDERABLES Fin al Result [facility] [address] [facility] Department of Laboratories [place], [place] [id number] * (ABNORMAL) Albumin Creatinine Ratio, Urine (10/06/2022 11:04 AM MATHEMATICS ACADEMIC CHAIR) Albumin Ur <12.0 mg/L JOHN Comment: Interpretive Data No reference range established. Current interpretive data was last revised 2019. Creatinine Ur 21.0 mg/dL JOHN Comment: Interpretive Data No reference range established. Current interpretive data was last revised 2019. Albumin Creatinine Ratio, Ur <57(H) 1 - 29 mg/g JOHN Urine 10/06/2022 11:0 4 AM MATHEMATICS ACADEMIC CHAIR 10/06/2022 12:19 PM MATHEMATICS ACADEMIC CHAIR Olvin Murray MD LAB URINE ORDERABLES Fin al Result Performing Organization Address [facility] Co de Phone Number JOHN [facility] [place] [address] * (ABNORMAL) Hemoglobin A1c (10/06/2022 11:04 AM MATHEMATICS ACADEMIC CHAIR) Hgb A1C 7.2(H) 4.0 - 5.6 % JOHN Estimated Average Glucose 160 mg/dL JOHN Comment: The ADA recommends reporting an estimated Average Glucose (eAG) with all Hemoglobin A1c results using the equation derived from a study of 507 normal and diabetic adults. Minority populations were underrepresented and children were not included. (Diabetes Care 31:8317-7189, 2008). The eAG is not equivalent to a fasting glucose. Blood 10/06/2022 11:0 4 AM MATHEMATICS ACADEMIC CHAIR 10/06/2022 12:18 PM MATHEMATICS ACADEMIC CHAIR Olvin Murray MD LAB BLOOD ORDERABLES Fin al Result Performing Organization Address [facility] Co de Phone Number JOHN [address] [place] [address] * Diabetic Eye Exam (08/08/2022) Historical Provider HEALTH MAINTENANCE Final Result * Pap and High Risk HPV, reflex to Genotyping (06/20/2022 10:20 AM CDT) Thin prep (Pap test) 06/20/2022 10:20 AM CDT 06/23/2022 10:20 AM CDT Narrative PATHOLOGY [facility] - 06/25/2022 11:10 AM CDT [facility] Department of Pathology [address] [place] [id number] Final Report with Addendum Note to Patients: [...] questions and explain the details. Patient Name: SILVIA DEY Address: [address] [place] [address] Gender: F : 1965 (Age: 57) Service: Location: N : [id number] [facility] #: [id number] Patient Type: [facility] SPECIMEN Taken: 06/20/2022 Received: 06/23/2022 Accessioned:: 06/24/2022 Reported: 06/25/2022 Physician(s): Govind Long M.D. [facility] Diagnosis: Source of Specimen: SCREENING THIN PREP [...] determined by the Surgical Pathology Department at [facility] as part of an ongoing assistant quality manager program and in compliance with federally mandated [...] characteristics determined by the Surgical Pathology Department [facility]. It has not been cleared or approved by the U. S. Food and Drug Administration. Govind Long MD LAB CYTOLOGY ORDERABLES Final Result PATHOLOGY [facility] * (ABNORMAL) Lipid panel (05/28/2022 7:14 [...] on 2018. Triglycerides 166(H) <=149 mg/dL JOHN QUEZADA Comment: Interpretive Data Ages [...] LAB BLOOD ORDERABLES Final Resu lt JOHN MH [address] [facility] Department [place] [address] * Colonoscopy (09/06/2018) Anatomical Region Laterality Modality Other Impressions 09/06/2018 Repeat in 5 years Results in care everywhere Historical Provider ENDOSCOPY PROCEDURES Edit ed Result - Final from Last 3 Months or Most Recently Relevant to Health Maintenance Insurance [facility] MEDICARE Advance Directives For more information, please contact: [phone] Documents on File Type Date Recorded Patient [employer] Sales Representative Expl anation Power of Clinical Office Technician 03/04/2024 11:01 AM Advance Directives and Living Will 11/02/2023 8:05 AM ADVANCE DIRECTIVE 02/12/2022 9:18 PM POWER OF SENIOR QUALITY CONTROL INSPECTOR ADVANCE DIRECTIVE 02/12/2022 9:18 PM POWER OF SENIOR QUALITY CONTROL INSPECTOR- Medical Care Teams Hot Man Relationship Specialty Start Date End Date Danish Borja MD PCP - General Family Medicine 09/22/23
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
--- NOTE | 2025-05-04 22:52 | ED_ITS ---
HPI - General Adult General Chief complaint: Unspecified Stated complaint: PAIN Rx NOT SIGNED [facility] TODAY. Time Seen by Provider: 05/04/25 22:04 Source: patient Mode of arrival: EMS Limitations: no limitations History of Present Illness HPI narrative: This is a 60 year old female that presents to the ER for pain medication. She was just discharged from our rehab facility and the prescription was not signed so she is not able to get any pain medication at her facility. She has no other complaints or concerns. Related Data Home Medications ?Medication ?Instructions ?Recorded ?Confirmed ?Last Taken ?Type acetaminophen 500 mg tablet 1,000 mg PO TID 04/20/25 04/20/25 04/19/25 08:30 History apixaban 2.5 mg tablet 2.5 mg PO BID 04/20/25 04/20/25 Unknown History aripiprazole 5 mg tablet 5 mg PO DAILY 04/20/25 04/20/25 04/19/25 08:30 History aspirin 81 mg tablet,delayed 81 mg PO DAILY 04/20/25 04/20/25 Unknown History release atorvastatin 40 mg tablet (Lipitor) 40 mg PO HS 04/20/25 04/20/25 04/18/25 20:30 History bacitracin 500 unit/gram topical 1 applic topical TID 04/20/25 04/20/25 04/19/25 11:15 History packet bisacodyl 10 mg rectal suppository 10 mg RECTAL DAILY 04/20/25 04/20/25 04/19/25 08:30 History bupropion HCl 150 mg tablet,12 hr 150 mg PO BID 04/20/25 04/20/25 04/19/25 08:30 History sustained-release (Wellbutrin SR) cholecalciferol (vitamin D3) 125 125 mcg PO DAILY 04/20/25 04/20/25 04/19/25 08:30 History mcg (5,000 unit) tablet cyanocobalamin (vitamin B-12) 100 250 mcg PO DAILY 04/20/25 04/20/25 Unknown History mcg tablet cyclobenzaprine 5 mg tablet 5 mg PO TID PRN not specified 04/20/25 04/20/25 04/15/25 22:40 History donepezil 23 mg tablet 23 mg PO HS 04/20/25 04/20/25 04/18/25 20:30 History duloxetine 60 mg capsule,delayed 60 mg PO .complex 04/20/25 04/20/25 04/19/25 History release (Cymbalta) ferrous sulfate 325 mg (65 mg 325 mg PO DAILY 04/20/25 04/20/25 Unknown History iron) tablet insulin aspart U-100 100 unit/mL 1 sliding scale dose subcut 04/20/25 04/20/25 Unknown History (3 mL) subcutaneous pen USEASDIRECTD lamotrigine 25 mg tablet 25 mg PO DAILY 04/20/25 04/20/25 04/19/25 08:30 History metoprolol tartrate 25 mg tablet 25 mg PO DAILY 04/20/25 04/20/25 04/19/25 08:30 History oxybutynin chloride 5 mg tablet 5 mg PO BID PRN not specified 04/20/25 04/20/25 Unknown History pantoprazole 40 mg tablet,delayed 40 mg PO QAM 04/20/25 04/20/25 04/19/25 08:30 History release polyethylene glycol 3350 17 17 g PO BID 04/20/25 04/20/25 04/19/25 08:30 History gram/dose oral powder psyllium 500 mg capsule 0.52 g PO BID 04/20/25 04/20/25 Unknown History sennosides 8.6 mg tablet 17.2 mg PO BID 04/20/25 04/20/25 04/19/25 08:30 History white petrolatum 1 applic topical PRN 04/20/25 04/20/25 Unknown History Allergies Allergy/AdvReac Type Severity Reaction Status Date / Time No Known Allergies Allergy Verified 04/21/25 13:00 Review of Systems Review of Systems: All systems reviewed & are unremarkable except as noted in HPI and below PMFSH Past Medical History Medical History Urinary incontinence Depression Early onset Alzheimer's dementia without behavioral disturbance Tobacco consumption Colon cancer screening Bloating Irritable bowel syndrome Chronic diarrhea Mass of right breast Family History Family History Other Carcinoma of colon Cerebrovascular accident Diabetes mellitus Family history of cardiovascular disease Hypertension Social History Social History Smoking packs per day: 2 Smoking cigarettes per day: 40.0 Years smoked: 40 Smoking pack-years: 80.00 Smoking status: Former smoker Tobacco type: cigarettes Alcohol intake: never Substance use: never Substance use type: does not use Do You Feel Safe in your Home?: Yes Lack of Transportation: No Lack of Food: Never True Current Housing: I Have Housing Concerned About Future Housing: No Difficulty Paying Gas/Electric Bills: No Difficulty Paying for Meds: No Currently Unemployed: No Education: High School Diploma/GED Difficulty w/ Childcare or Family Care: No Living arrangements: with family Occupation/Education: unemployed Gender identity (if verbalized by the patient): Female Sexual Orientation (if Verbalized by the Patient): Straight or Heterosexual Spiritual care concerns: No Agree to blood products: Yes Exam Narrative: GENERAL: Well-appearing, well-nourished, and in no acute distress. HEAD: Normocephalic, atraumatic. EYES: EOMI. ENT: Nares clear, no rhinorrhea or epistaxis. Mucous membranes moist. Oropharynx without tonsillar hypertrophy exudate or other lesions. NECK: Supple. No adenopathy or masses. C collar in place CHEST: Clear to auscultation. No respiratory distress. No wheezes rales or rhonchi HEART: Regular rate and rhythm. No murmur heard. Normal peripheral pulses. EXTREMITIES: Normal range of motion. No edema. SKIN: Warm, dry, no rash. NEURO: No focal deficits. Alert and oriented x3. PSYCH: Normal mood and affect Course Vital Signs Vital signs: Vital Signs Temperature 98.2 F 05/04/25 22:07 Pulse Rate 60 05/04/25 22:07 Respiratory Rate 18 05/04/25 22:07 Blood Pressure 168/87 H 05/04/25 22:07 Pulse Oximetry 98 05/04/25 22:07 Oxygen Delivery Room Air 05/04/25 22:07 Temperature 98.2 F 05/04/25 22:07 Pulse Rate 60 05/04/25 22:07 Respiratory Rate 18 05/04/25 22:07 Blood Pressure 168/87 H 05/04/25 22:07 Pulse Oximetry 98 05/04/25 22:07 Oxygen Delivery Room Air 05/04/25 22:07 Medical Decision Making MDM Narrative Medical decision making narrative: Patient presents to the ER for pain medication. She was just discharged from our rehab facility and the prescription was not signed so she is not able to get any pain medication at her facility. She has no other complaints or concerns. I have wrote the patient a new prescription and it is signed. We are attempting to find the old prescription so it can be shredded Vital Signs Vital Signs: Vital Signs Temperature 98.2 F 05/04/25 22:07 Pulse Rate 60 05/04/25 22:07 Respiratory Rate 18 05/04/25 22:07 Blood Pressure 168/87 H 05/04/25 22:07 Pulse Oximetry 98 05/04/25 22:07 Oxygen Delivery Room Air 05/04/25 22:07 Temperature 98.2 F 05/04/25 22:07 Pulse Rate 60 05/04/25 22:07 Respiratory Rate 18 05/04/25 22:07 Blood Pressure 168/87 H 05/04/25 22:07 Pulse Oximetry 98 05/04/25 22:07 Oxygen Delivery Room Air 05/04/25 22:07 Critical Care Time Critical Care Time Critical Care Time: No Discharge Plan Discharge Clinical Impression: Encounter for medication refill [facility] Condition: Stable Instructions: Medicine Refill (ED) Patient Language: Wolof Prescriptions: New oxycodone 5 mg tablet 5 mg PO Q6H PRN (Reason: pain) Qty: 10 0RF No Action (DME) lancets [Accu-Chek Softclix Lancets] Misc See Rx Instructions .ROUTE .MEDSUPPLY Qty: 50 1RF Rx Instructions: As directed (DME) Accu-Chek Nery Plus test strp Strip See Rx Instructions .ROUTE .MEDSUPPLY Qty: 50 1RF Rx Instructions: As directed (DME) blood-glucose meter [Accu-Chek Nery Plus Meter] Misc See Rx Instructions .ROUTE .MEDSUPPLY Qty: 1 0RF Rx Instructions: As directed gabapentin 300 mg capsule 600 mg PO TID 90 Days Qty: 540 1RF acetaminophen 500 mg tablet 1,000 mg PO TID apixaban 2.5 mg tablet 2.5 mg PO BID Patient Comments: for 35 days bacitracin 500 unit/gram packet 1 applic topical TID bisacodyl 10 mg suppository 10 mg RECTAL DAILY insulin aspart U-100 100 unit/mL (3 mL) insulin pen 1 sliding scale dose subcut USEASDIRECTD pantoprazole 40 mg tablet,delayed release (DR/EC) 40 mg PO QAM polyethylene glycol 3350 17 gram/dose powder 17 g PO BID sennosides 8.6 mg tablet 17.2 mg PO BID white petrolatum Ointment 1 applic topical PRN cholecalciferol (vitamin D3) 125 mcg (5,000 unit) tablet 125 mcg PO DAILY aripiprazole 5 mg tablet 5 mg PO DAILY aspirin 81 mg tablet,delayed release (DR/EC) 81 mg PO DAILY atorvastatin [Lipitor] 40 mg tablet 40 mg PO HS bupropion HCl [Wellbutrin SR] 150 mg tablet sustained-release 12 hr 150 mg PO BID cyanocobalamin (vitamin B-12) 100 mcg tablet 250 mcg PO DAILY cyclobenzaprine 5 mg tablet 5 mg PO TID PRN (Reason: not specified) donepezil 23 mg tablet 23 mg PO HS ferrous sulfate 325 mg (65 mg iron) tablet 325 mg PO DAILY lamotrigine 25 mg tablet 25 mg PO DAILY metoprolol tartrate 25 mg tablet 25 mg PO DAILY oxybutynin chloride 5 mg tablet 5 mg PO BID PRN (Reason: not specified) duloxetine [Cymbalta] 60 mg capsule,delayed release(DR/EC) 60 mg PO .complex Patient Comments: unknown frequency psyllium 500 mg capsule 0.52 g PO BID lisinopril 10 mg Tablet 30 mg PO DAILY Qty: 0 0RF metformin 500 mg tablet 500 mg PO DAILY Qty: 10 0RF oxycodone 5 mg Tablet 5 mg PO Q6H PRN (Reason: pain) Qty: 10 0RF Follow-up/Referrals: Jonh,Danish Ramos MD [Primary Care Provider] -
--- NOTE | 2025-05-04 23:06 | PC.NURSE ---
Report called to [facility] at this time. all questions answered at time of report.
[2025-05-04] MEDS: oxyCODONE HCL (*CRX) 5 MG TAB IR PO (23:36)
[2025-05-05 05:20] VITALS: BP 172/84; PULSE 78; RESP 15; O2SAT 99
[2025-05-05 08:43] VITALS: BP 147/72; PULSE 63; RESP 20; TEMP 36.4; O2SAT 99
[2025-05-05] MEDS: oxyCODONE HCL (*CRX) 5 MG TAB IR PO (08:58)
== END 2025-05-05 10:02 ==
PROVIDERS: Emergency Provider Physician Assistant; PCP Family Medicine
DX: R52 Pain, unspecified (principal); Z76.0 Encounter for issue of repeat prescription; G30.0 Alzheimer's disease with early onset; F02.80 Dementia in other diseases classified elsewhere, unspecified severity, without behavioral disturbance, psychotic disturbance, mood disturbance, and anxiety; K58.9 Irritable bowel syndrome, unspecified; F32.A Depression, unspecified; Z87.891 Personal history of nicotine dependence; Z79.4 Long term (current) use of insulin; Z79.01 Long term (current) use of anticoagulants; Z79.899 Other long term (current) drug therapy; Z79.82 Long term (current) use of aspirin; Z79.84 Long term (current) use of oral hypoglycemic drugs
CPT/HCPCS: 99281; A9270